=== PATIENT | female | born 1955 | race Caucasian/White ===

== ENCOUNTER → 2017-08-20 | Outpatient (CLI) | payer MEDICARE, MEDICAID ==
[~2017-08-20] MED LIST: AC325T PO; AD60O TOP; ALBUNEBRX IH; CALC-787 PO; CALC1CAP21 PO; CARB15DR87 EACH EAR; CEFD300C3 PO; CLON2TAB3 PO; CLON2TAB45 PO; DCS100C PO; DIVA125T2 PO; DIVA500T PO; DOCU50CA2 PO; FRSM20T PO; HYOS-20 PO; IBUP-15 PO; LEVO750T6 PO; LORA10TA7 PO; MELA10TA2 PO; MELA1TAB16 PO; MULT-963 PO; PRCD5U PO; TRAZ-28 PO; TRAZ150T42 PO; TRZ100T PO
--- NOTE | 2017-08-20 12:29 | Diagnostic Imaging Report ---
AP pelvis and two views of the right hip. INDICATION: Limping. FINDINGS: No fracture or dislocation is seen. No radiopaque foreign body is seen. Mild degenerative changes of the hip joints is seen. The right hip dedicated radiographs demonstrate minimal degenerative changes. Elongated sclerotic lesion in the femoral head measuring 1 cm in length and is probably a bony island. IMPRESSION: Mild degenerative changes. Dictated by: Dictated on workstation # [id number]
== END ==
LOC: RAD 11:08
PROVIDERS: ATTEND Family Medicine
DX: M25.551 Pain in right hip (principal)

== ENCOUNTER 2018-12-10 08:51 | Emergency (ER) | payer MEDICARE, MEDICAID ==
[~2018-12-10] VITALS: Ht 160 cm; Wt 59.0 kg
[~2018-12-10 08:51] MED LIST changes: +TRAZ-189 PO; -TRAZ-28 PO
--- NOTE | 2018-12-10 09:25 | ED Upper Extremity ---
General Chief Complaint: Upper Extremity Stated Complaint: RT ARM PAIN Nursing Triage Note: ARRIVED VIA AMB WITH DIRECTOR MEDICA[employer]. STATES SHE WOKE UP THIS MORNING NOT WANTING TO USE HER RIGHT ARM. UNKNOWN INJURY. Nursing Sepsis Screen: No Definite Risk Source: patient Exam Limitations: physical impairment History of Present Illness Date Seen by Provider: Dec 10, 2018 Time Seen by Provider: 09:08 Initial Comments Here with acute onset of right arm pain. 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 No reported injuries at her longterm. No report of falls. Patient is nonverbal and developmentally delayed. Does have bruise to the upper right arm. No other obvious injuries or concerns. Onset: this morning Severity: moderate Pain/Injury Location: right arm Method of Injury: unknown Modifying Factors: Improves With Immobilization; Worse With Movement Allergies and Home Medications Allergies Coded Allergies: loxapine (Verified Allergy, Unknown, 08/18/16) medroxyprogesterone (Verified Allergy, Unknown, 08/18/16) Home Medications Acetaminophen 325 Mg Tablet, 650 MG PO Q4H PRN for fever 101/pain, (Reported) take 2 (325mg) tabs Calcium Carbonate/Vitamin D3 1 Each Capsule, 1 EACH PO BID WITH MEALS, (Reported ) Clonazepam 2 Mg Tablet, 2 MG PO HS, (Reported) Divalproex Sodium 500 Mg Tablet.dr, 500 MG PO HS, (Reported) Divalproex Sodium 125 Mg Tablet.dr, 250 MG PO DAILY, (Reported) take 2 (125mg) tabs Docusate Sodium 100 Mg Capsule, 100 MG PO BID, (Reported) Furosemide 20 Mg Tab, 20 MG PO DAILY, (Reported) Hyoscyamine Sulfate 0.125 Mg Tablet, 0.125 MG PO BID, (Reported) Loratadine 10 Mg Tablet, 10 MG PO DAILY, (Reported) Melatonin/Pyridoxine Hcl (B6) 1 Each Tablet, 5 MG PO HS, (Reported) Multivitamin 1 Each Tablet, 1 TAB PO DAILY, (Reported) Promethazine/Codeine 5 Ml Syrp, 10 ML PO Q8H PRN, (Reported) PRN COUGH Trazodone HCl 50 Mg Tablet, 25 MG PO HS, (Reported) take 1/2 of 50mg tab, take with 100mg tab for total 125mg Trazodone Hcl 100 Mg Tab, 100 MG PO HS, (Reported) take with 25mg dose for total 125mg Patient Home Medication List Home Medication List Reviewed: Yes Review of Systems Constitutional: see HPI; No chills, No fever Respiratory: no symptoms reported Cardiovascular: no symptoms reported Musculoskeletal: see HPI, joint pain, muscle pain Skin: change in color; No lesions Psychiatric/Neurological: No Symptoms Reported Past Hqenmno-Fyifjc-Jzxolk Hx Past Med/Social Hx: Reviewed Nursing Past Med/Soc Hx Patient Social History Alcohol Use: Denies Use Recreational Drug Use: No Smoking Status: Never a Smoker Recent Foreign Travel: No Contact w/Someone Who Travel: No Recent Infectious Disease Expo: No Recent Hopitalizations: No Immunizations Up To Date Date of Pneumonia Vaccine: Dec 24, 2012 Date of Influenza Vaccine: Jul 26, 2014 Seasonal Allergies Seasonal Allergies: No Past Medical History Surgeries: No Respiratory: No Cardiac: No Neurological: Yes (MR) Seizure Disorder Reproductive Disorders: No [employer] History: Menopausal Gastrointestinal: No Musculoskeletal: No Endocrine: No Cataract Cancer: No Psychosocial: Yes (autism, non-verbal) Integumentary: No Blood Disorders: No Family Medical History Reviewed Nursing Family Hx Physical Exam Vital Signs Vital Signs - First Documented 12/10/18 08:55 Temp 98.0 Pulse 112 Resp 16 B/P (MAP) 136/73 (94) Pulse Ox 92 O2 Delivery Room Air Capillary Refill : Less Than 3 Seconds Height, Weight, BMI Height: 5'3.00" Weight: 130lbs. 7.0oz. [id number]; 20.6 BMI Method:Stated General Appearance: WD/WN, no apparent distress Cardiovascular: regular rate, rhythm, no murmur Respiratory: lungs clear, normal breath sounds Shoulder: bone tenderness, ecchymosis, limited ROM, pain (pain noted to the upper humerus area. This is also where the bruises noted to the lateral aspect. Not obviously deformed but patient is protecting it. She does have distal range of motion at elbow, wrist and hand on the right without difficulty it appears.) Elbow/Forearm: normal ROM, Right Wrist: Yes no evidence of injury, Yes normal ROM Hand: no evidence of injury, normal ROM, Right Neurologic/Psychiatric: other (awake and nonverbal and otherwise acting typical per the care provider) Skin: warm/dry, ecchymosis (as above) Progress/Results/Core Measures Results/Orders My Orders Orders - PETTY CLIFTON MD Humerus, Right, 2 Views (12/10/18 09:14) Vital Signs/I&O 12/10/18 08:55 Temp 98.0 Pulse 112 Resp 16 B/P (MAP) 136/73 (94) Pulse Ox 92 O2 Delivery Room Air Blood Pressure Mean: 94 Progress Progress Note : Progress Note Seen and evaluated. X-ray right humerus. Fracture noted. Sling applied. Discharged to care facility with return precautions. Care provider verbalize understanding instructions and agreement with plan. I did discuss the case with Dr. Thompson at 1035 and he agrees with plan. Diagnostic Imaging Diagonstic Imaging: Xray Plain Films/CT/US/NM/MRI: other Comments [facility], [place] NAME: RENATO CASTILLO [facility] REC#: [id number] PT STATUS: REG ER : 1955 PHYSICIAN: PETTY CLIFTON MD ADMIT DATE: 12/10/18/ER Draft Date of Exam:12/10/18 HUMERUS, RIGHT, 2 VIEWS INDICATION: Right arm pain. TIME OF EXAMINATION: 9:22 AM. TECHNIQUE: Two views of the right humerus were obtained. There is a fracture of the humeral neck. There is medial displacement and lateral angulation of the distal humerus fracture fragment. The humeral head maintains normal alignment with the glenoid. There appears to be some surrounding calcification, uncertain if this represents fracture fragments versus dystrophic calcifications. IMPRESSION: Proximal humerus fracture with displacement and angulation as described. Dictated on workstation # [id number] Dict: 12/10/1828 Trans: 12/10/1831 [id number] Interpreted by: ELIZABETH WALSH MD Electronically signed by: Reviewed: Reviewed by Me Departure Impression Primary Impression: Proximal humerus fracture Qualified Codes: S42.291A - Other displaced fracture of upper end of right humerus, initial encounter for closed fracture Disposition: HOME, SELF-CARE Condition: Stable Departure-Patient Inst. Decision time for Depature: 10:36 Referrals: IJEOMA HUBBARD DO (PCP/Family) Primary Care Physician NAT THOMPSON MD Patient Instructions: Upper Arm Fracture Add. Discharge Instructions: All discharge instructions reviewed with patient and/or family. Voiced understanding. Use sling for comfort. Call Dr. Thompson's office for appointment next week. You may give Tylenol 650 mg every 6 hours as needed for pain. You may use ice packs to area of concern. Return for worse pain, swelling, weakness or other concerns as needed. Copy Copies To 1: NAT THOMPSON MD, TIMOTHY D MD Dec 10, 2018 09:25
--- NOTE | 2018-12-10 09:31 | Diagnostic Imaging Report ---
INDICATION: Right arm pain. TIME OF EXAMINATION: 9:22 AM. TECHNIQUE: Two views of the right humerus were obtained. There is a fracture of the humeral neck. There is medial displacement and lateral angulation of the distal humerus fracture fragment. The humeral head maintains normal alignment with the glenoid. There appears to be some surrounding calcification, uncertain if this represents fracture fragments versus dystrophic calcifications. IMPRESSION: Proximal humerus fracture with displacement and angulation as described. Dictated by: Dictated on workstation # [id number]
--- OUTSIDE RECORDS SUMMARY | 2018-12-10 10:35 | XMS REPORT | Continuity of Care Document ---
Author Author [facility] Organization [facility] Address Unknown Phone Unavailable Allergies Active Description Code Type Severity Reaction Onset Reported/Identified Relationship to Patient Clinical Status Yes No Known Drug Allergies [id number] Drug Allergy Unknown N/A 03/31/2013 Yes loxapine [id number] Drug Allergy Unknown N/A 08/18/2016 Yes medroxyprogesterone [id number] Drug Allergy Unknown N/A 08/18/2016 Medications There is no data. Problems Date Dx Coded Attending Type Code Diagnosis Diagnosed By 12/15/2014 Ot 319 12/15/2014 Ot 345.90 08/21/2016 LOWE DDS, VIRGEN Ot K02.9 DENTAL CARIES, UNSPECIFIED 08/21/2016 LOWE DDS, VIRGEN Ot Z01.818 ENCOUNTER FOR OTHER PREPROCEDURAL EXAMIN 08/21/2016 LOWE DDS, VIRGEN Ot Z11.2 ENCOUNTER FOR SCREENING FOR OTHER BACTER 08/22/2016 LOWE DDS, VIRGEN Ot F79 UNSPECIFIED INTELLECTUAL DISABILITIES 08/22/2016 LOWE DDS, VIRGEN Ot F84.0 AUTISTIC DISORDER 08/22/2016 LOWE DDS, VIRGEN Ot K02.9 DENTAL CARIES, UNSPECIFIED 08/24/2016 LOWE DDS, VIRGEN Ot K02.9 DENTAL CARIES, UNSPECIFIED 08/24/2016 LOWE DDS, VIRGEN Ot Z01.818 ENCOUNTER FOR OTHER PREPROCEDURAL EXAMIN 08/24/2016 LOWE DDS, VIRGEN Ot Z11.2 ENCOUNTER FOR SCREENING FOR OTHER BACTER 09/08/2016 LOWE DDS, VIRGEN Ot F79 UNSPECIFIED INTELLECTUAL DISABILITIES 09/08/2016 LOWE DDS, VIRGEN Ot F84.0 AUTISTIC DISORDER 09/08/2016 LOWE DDS, VIRGEN Ot K02.9 DENTAL CARIES, UNSPECIFIED 09/11/2017 IJEOMA HUBBARD DO Ot M25.551 PAIN IN RIGHT HIP 09/15/2017 IJEOMA HUBBARD DO Ot M25.551 PAIN IN RIGHT HIP Procedures There is no data. Results Test Result Range Methicillin resistant Staphylococcus aureus (MRSA) screening culture - 09:30 Methicillin resistant Staphylococcus aureus (MRSA) screening culture NEG NRG Encounters ACCT No. Visit Date/Time Discharge Status Pt. Type Provider Facility Loc./Unit Complaint [id number] 08/20/2017 11:08:00 08/20/2017 23:59:59 CLS Outpatient IJEOMA HUBBARD DO [facility] RAD LIMPING RIGHT HIP [id number] 08/22/2016 12:48:00 08/22/2016 17:15:00 DIS Outpatient GUANAKO HINTON VIRGEN [facility] SDC DECAY [id number] 08/18/2016 09:25:00 08/18/2016 09:45:00 DIS Outpatient VIRGEN MUJICA DDS [facility] PREOP DECAY [id number] 04/12/2013 10:16:00 04/12/2013 23:59:59 CLS Outpatient [id number] 03/31/2013 10:00:00 04/08/2013 13:13:00 DIS Inpatient [id number] 12/15/2014 12:51:00 Document Registration
[2018-12-10 10:40] VITALS: BP 136/73
== END 2018-12-10 10:40 | disposition home or self-care (01) ==
LOC: EDUNIT# 08:51 → ER 08:53
DX: S42.291A Other displaced fracture of upper end of right humerus, initial encounter for closed fracture (principal); G40.909 Epilepsy, unspecified, not intractable, without status epilepticus; F84.0 Autistic disorder; Z88.8 Allergy status to other drugs, medicaments and biological substances; X58.XXXA Exposure to other specified factors, initial encounter
CPT/HCPCS: 73060